=== PATIENT | female | born 1940 | race Two or more races ===

== ENCOUNTER → 2024-03-11 | Outpatient (CLI) | payer MEDICAID ==
[2024-03-11 14:44] LABS: Body Fluid White Blood Cells 3979 CUMM (0-200)
[2024-03-11 14:45] LABS: Body Fluid Polymorphonuclear 90 % (0-25); Body Fluid Red Blood Cells 251 CUMM (0-2000)
[2024-03-12 11:07] LABS: Protein, Body Fluid 5.3 g/dL (.)
== END | disposition home or self-care (01) ==
LOC: US 12:11
PROVIDERS: ATTEND Internal Medicine Pulmonary Disease
DX: J90 Pleural effusion, not elsewhere classified (principal); J98.11 Atelectasis
CPT/HCPCS: 32555; 71045; 83986; 87205; 89051; C1729; 76942